=== PATIENT | male | born 1940 | race Hispanic/Latino ===

== ENCOUNTER 2018-07-18 21:46 | Emergency (ER) | payer MEDICARE, OTHER ==
[~2018-07-18] VITALS: Ht 172.7 cm; Wt 81.6 kg
== END 2018-07-18 23:40 | disposition home or self-care (01) ==
LOC: ER 21:46
DX: S01.111A Laceration without foreign body of right eyelid and periocular area, initial encounter (principal); W45.8XXA Other foreign body or object entering through skin, initial encounter; Y92.008 Other place in unspecified non-institutional (private) residence as the place of occurrence of the external cause; I10 Essential (primary) hypertension; E78.5 Hyperlipidemia, unspecified; Z86.73 Personal history of transient ischemic attack (TIA), and cerebral infarction without residual deficits

== ENCOUNTER 2021-03-14 16:26 | Inpatient (IN) | payer OTHER ==
[~2021-03-14] VITALS: Ht 170.2 cm; Wt 78.9 kg
[2021-03-14] MEDS ORDERED: MORPHINE SULFATE INJ 2 MG/ML SYR IV PRN (16:45)
[2021-03-14] MEDS ORDERED: AMLODIPINE BESYL5 MG PO (17:02)
[2021-03-14] MEDS ORDERED: FLUOXETINE HCL10 MG PO (17:02)
[2021-03-14] MEDS ORDERED: MELOXICAM7.5 MG PO (17:02)
[2021-03-14] MEDS ORDERED: ATORVASTATIN CA40 MG PO (17:02)
[2021-03-14 17:04] LABS: BASOPHILS % 0.2 % (0.0-1.0); EOSINOPHILS % 0.3 % (0.0-6.0); HEMATOCRIT 45.6 % (38.2-49.6); HEMOGLOBIN 15.6 g/dL (14.0-18.0); LYMPHOCYTES # (AUTO) 1.4 (1.0-3.2); LYMPHOCYTES % 11.2 % (18.0-39.1); MEAN CORPUSCULAR HEMOGLOBIN 30.4 pg (28-32); MEAN CORPUSCULAR HGB CONC 34.2 g/dL (31-35); MEAN CORPUSCULAR VOLUME 88.7 fL (81-99); MONOCYTES # (AUTO) 0.8 (0.2-0.8); MONOCYTES % 6.5 % (4.4-11.3); NEUTROPHILS # (AUTO) 10.3 (2.1-6.9); NEUTROPHILS % 81.4 % (38.7-80.0); PLATELET COUNT 133 x10e3/uL (140-360); RED BLOOD COUNT 5.14 x10e6/uL (4.3-5.7); RED CELL DISTRIBUTION WIDTH 13.2 % (11.7-14.4)
[2021-03-14 17:20] LABS: ALANINE AMINOTRANSFERASE 34 IU/L (0-55); ALBUMIN 4.7 g/dL (3.5-5.0); ALBUMIN/GLOBULIN RATIO 1.6 (0.8-2.0); ALKALINE PHOSPHATASE 74 IU/L (40-150); ANION GAP 17.1 mmol/L (8-16); BLOOD UREA NITROGEN 17 mg/dL (7-26); BUN/CREATININE RATIO 16 (6-25); CALCIUM 9.4 mg/dL (8.4-10.2); CARBON DIOXIDE 24 mmol/L (22-29); CHLORIDE 102 mmol/L (98-107); CREATININE, SERUM 1.08 mg/dL (0.72-1.25); EST GLOMERULAR FILTRATION RATE > 60 ML/MIN (60-); GLUCOSE 117 mg/dL (74-118); POTASSIUM 4.1 mmol/L (3.5-5.1); SODIUM 139 mmol/L (136-145)
[2021-03-14 17:26] LABS: CREATINE KINASE 178 IU/L (30-200)
[2021-03-14] MEDS: ONDANSETRON HCL INJ 2MG/ML 2ML 2 MG/ML VIAL IV PRN (17:26)
[2021-03-14] MEDS: SODIUM CHLORIDE 0.9% 1000ML 1,000 ML IV SCH (17:26)
[2021-03-14] MEDS: MORPHINE SULFATE INJ 4 MG/ML INJ 1ML IV PRN (17:26)
[2021-03-14 20:50] VITALS: BP 151/72
[2021-03-14] MEDS ORDERED: AMLODIPINE BESYLATE 5 MG TAB PO ONE (22:15)
[2021-03-14] MEDS ORDERED: CELECOXIB 100 MG CAP PO ONE (22:15)
[2021-03-14 22:50] VITALS: BP 158/83
[2021-03-15] VITALS (8 sets, daily range): BP systolic 110–151; BP diastolic 71–76
[2021-03-15] MEDS ORDERED: FINASTERIDE5 MG PO (01:01)
[2021-03-15] MEDS ORDERED: FLOMAX0.4 MG PO (01:01)
[2021-03-15 01:04] LABS: CREATINE KINASE MB 0.6 ng/mL (0-5.0)
[2021-03-15] MEDS: SODIUM CHLORIDE 0.9% 1000ML 1,000 ML IV SCH (02:25)
[2021-03-15 05:01] LABS: BASOPHILS % 0.2 % (0.0-1.0); EOSINOPHILS # (AUTO) 0.1 (0.0-0.4); EOSINOPHILS % 0.9 % (0.0-6.0); HEMATOCRIT 40.7 % (38.2-49.6); LYMPHOCYTES # (AUTO) 1.6 (1.0-3.2); LYMPHOCYTES % 19.2 % (18.0-39.1); MEAN CORPUSCULAR HEMOGLOBIN 30.4 pg (28-32); MEAN CORPUSCULAR HGB CONC 34.4 g/dL (31-35); MEAN CORPUSCULAR VOLUME 88.5 fL (81-99); MONOCYTES # (AUTO) 0.6 (0.2-0.8); MONOCYTES % 7.4 % (4.4-11.3); NEUTROPHILS # (AUTO) 6.2 (2.1-6.9); NEUTROPHILS % 72.1 % (38.7-80.0); PLATELET COUNT 113 x10e3/uL (140-360); RED CELL DISTRIBUTION WIDTH 13.1 % (11.7-14.4)
[2021-03-15 05:21] LABS: ALANINE AMINOTRANSFERASE 26 IU/L (0-55); ALBUMIN 3.8 g/dL (3.5-5.0); ALBUMIN/GLOBULIN RATIO 1.5 (0.8-2.0); ALKALINE PHOSPHATASE 59 IU/L (40-150); ANION GAP 14.3 mmol/L (8-16); BLOOD UREA NITROGEN 16 mg/dL (7-26); BUN/CREATININE RATIO 18 (6-25); CARBON DIOXIDE 23 mmol/L (22-29); CHLORIDE 107 mmol/L (98-107); EST GLOMERULAR FILTRATION RATE > 60 ML/MIN (60-); GLUCOSE 110 mg/dL (74-118); POTASSIUM 4.3 mmol/L (3.5-5.1); SODIUM 140 mmol/L (136-145)
[2021-03-15] MEDS: AMLODIPINE BESYLATE 5 MG TAB PO SCH ×2 (06:00→09:07)
[2021-03-15] MEDS ORDERED: ATORVASTATIN 40 MG TAB PO SCH (09:00)
[2021-03-15] MEDS: CELECOXIB 100 MG CAP PO SCH ×2 (09:06→16:02)
[2021-03-15] MEDS: FLUOXETINE HCL 10 MG CAP PO SCH (09:07)
[2021-03-15] MEDS: SENNA-S TABLET PO SCH ×2 (09:07→17:00)
[2021-03-15 09:27] LABS: CREATINE KINASE MB 0.6 ng/mL (0-5.0)
[2021-03-15] MEDS: MORPHINE SULFATE INJ 4 MG/ML INJ 1ML IV PRN (16:11)
[2021-03-15] MEDS: ONDANSETRON HCL INJ 2MG/ML 2ML 2 MG/ML VIAL IV PRN (16:11)
[2021-03-15] MEDS: ATORVASTATIN 40 MG TAB PO SCH (20:48)
[2021-03-16] VITALS (7 sets, daily range): BP systolic 132–162; BP diastolic 76–94
[2021-03-16] MEDS ORDERED: SODIUM CHLORIDE 0.9% 1000ML 1,000 ML IV SCH
[2021-03-16] MEDS ORDERED: CEFAZOLIN SOD 1 GM/NS 50ML 100 ML IV ONE (06:00)
[2021-03-16] MEDS: CELECOXIB 100 MG CAP PO SCH ×2 (08:00→17:50)
[2021-03-16] MEDS: FLUOXETINE HCL 10 MG CAP PO SCH (09:00)
[2021-03-16] MEDS: AMLODIPINE BESYLATE 5 MG TAB PO SCH (09:00)
[2021-03-16] MEDS: SENNA-S TABLET PO SCH ×2 (09:00→17:50)
[2021-03-16] MEDS ORDERED: CEFAZOLIN SOD 1 GM/NS 50ML 50 ML IV ONE (09:32)
[2021-03-16] MEDS ORDERED: NALOXONE HCL INJ 0.4 MG/ML AMP IV PRN (12:15)
[2021-03-16] MEDS ORDERED: ONDANSETRON HCL INJ 2MG/ML 2ML 2 MG/ML VIAL IV PRN (12:15)
[2021-03-16] MEDS ORDERED: HYDROMORPHONE 0.2MG/ML-SOD CHL 30ML PCA SYRINGE IV PRN (12:15)
[2021-03-16] MEDS ORDERED: NEOSTIGMINE 1 MG/ML 10ML VIAL ONE (12:44)
[2021-03-16] MEDS ORDERED: DEXAMETHASONE SOD PHOS INJ 4 MG/ML VIAL ONE (12:44)
[2021-03-16] MEDS ORDERED: SEVOFLURANE INHAL SOLN 250 ML PEN BTL ONE (12:44)
[2021-03-16] MEDS ORDERED: ROCURONIUM BROMIDE 10 MG/ML 5ML VIAL IV ONE (12:44)
[2021-03-16] MEDS ORDERED: ONDANSETRON HCL INJ 2MG/ML 2ML 2 MG/ML VIAL ONE (12:44)
[2021-03-16] MEDS ORDERED: LIDOCAINE HCL 2% LOCAL INJ 5 ML SDV VIAL INJ ONE (12:44)
[2021-03-16] MEDS ORDERED: PROPOFOL IV EMULSION 10 MG/ML 20 ML VIAL ONE (12:44)
[2021-03-16] MEDS ORDERED: GLYCOPYRROLATE INJ 0.2 MG/ML VIAL ONE (12:44)
[2021-03-16] MEDS ORDERED: EPHEDRINE SULFATE INJ 50 MG/ML VIAL ONE (12:44)
[2021-03-16] MEDS ORDERED: HYDROMORPHONE 0.2MG/ML-SOD CHL 30ML PCA SYRINGE IV ONE (12:57)
[2021-03-16] MEDS ORDERED: FENTANYL CITRATE/PF 100MCG/2 ML INJ ONE (13:27)
[2021-03-16] MEDS ORDERED: MORPHINE SULFATE INJ 10 MG/ML ONE (13:27)
[2021-03-16] MEDS: SODIUM CHLORIDE 0.9% 1000ML 1,000 ML IV SCH ×2 (16:12→22:15)
[2021-03-16] MEDS: CEFAZOLIN SOD 1 GM/NS 50ML 50 ML IV SCH (17:50)
[2021-03-16] MEDS: ACETAMINOPHEN 1000 MG/100 ML IV SCH (17:54)
[2021-03-16] MEDS: ATORVASTATIN 40 MG TAB PO SCH (22:56)
[2021-03-17] VITALS (9 sets, daily range): BP systolic 126–166; BP diastolic 67–90
[2021-03-17] MEDS: CEFAZOLIN SOD 1 GM/NS 50ML 50 ML IV SCH ×2 (01:34→08:35)
[2021-03-17] MEDS: ACETAMINOPHEN 1000 MG/100 ML IV SCH ×3 (05:23→12:13)
[2021-03-17 06:15] LABS: BASOPHILS % 0.2 % (0.0-1.0); EOSINOPHILS % 0.3 % (0.0-6.0); HEMATOCRIT 35.5 % (38.2-49.6); LYMPHOCYTES % 21.6 % (18.0-39.1); MEAN CORPUSCULAR HEMOGLOBIN 30.5 pg (28-32); MEAN CORPUSCULAR HGB CONC 33.8 g/dL (31-35); MEAN CORPUSCULAR VOLUME 90.3 fL (81-99); MONOCYTES # (AUTO) 0.8 (0.2-0.8); MONOCYTES % 8.6 % (4.4-11.3); NEUTROPHILS # (AUTO) 6.5 (2.1-6.9); PLATELET COUNT 125 x10e3/uL (140-360); RED BLOOD COUNT 3.93 x10e6/uL (4.3-5.7); RED CELL DISTRIBUTION WIDTH 13.1 % (11.7-14.4)
[2021-03-17 06:40] LABS: ANION GAP 13.3 mmol/L (8-16); CREATININE, SERUM 1.17 mg/dL (0.72-1.25); POTASSIUM 4.3 mmol/L (3.5-5.1)
[2021-03-17] MEDS: AMLODIPINE BESYLATE 5 MG TAB PO SCH (08:37)
[2021-03-17] MEDS: SENNA-S TABLET PO SCH ×2 (08:37→21:40)
[2021-03-17] MEDS: CELECOXIB 100 MG CAP PO SCH ×2 (08:37→16:10)
[2021-03-17] MEDS: FLUOXETINE HCL 10 MG CAP PO SCH (08:37)
[2021-03-17] MEDS: SODIUM CHLORIDE 0.9% 1000ML 1,000 ML IV SCH (08:37)
[2021-03-17] MEDS ORDERED: HYDROCODONE/APAP 7.5MG-325MG 1 EA TAB PO PRN (08:45)
[2021-03-17] MEDS ORDERED: APIXAB 2.5 MG TABLET PO SCH (09:00)
[2021-03-17] MEDS: GABAPENTIN 100 MG CAP PO SCH ×4 (10:09→21:40)
[2021-03-17] MEDS: ATORVASTATIN 40 MG TAB PO SCH (21:40)
[2021-03-17] MEDS: APIXAB 2.5 MG TABLET PO SCH (21:40)
[2021-03-18] VITALS (8 sets, daily range): BP systolic 126–150; BP diastolic 62–79
[2021-03-18 05:33] LABS: BASOPHILS % 0.4 % (0.0-1.0); EOSINOPHILS # (AUTO) 0.1 (0.0-0.4); EOSINOPHILS % 1.9 % (0.0-6.0); HEMATOCRIT 31.2 % (38.2-49.6); HEMOGLOBIN 10.6 g/dL (14.0-18.0); LYMPHOCYTES # (AUTO) 1.7 (1.0-3.2); LYMPHOCYTES % 23.5 % (18.0-39.1); MEAN CORPUSCULAR HEMOGLOBIN 30.7 pg (28-32); MEAN CORPUSCULAR VOLUME 90.4 fL (81-99); MONOCYTES # (AUTO) 0.5 (0.2-0.8); MONOCYTES % 7.5 % (4.4-11.3); NEUTROPHILS # (AUTO) 4.8 (2.1-6.9); NEUTROPHILS % 66.4 % (38.7-80.0); PLATELET COUNT 99 x10e3/uL (140-360); RED BLOOD COUNT 3.45 x10e6/uL (4.3-5.7); RED CELL DISTRIBUTION WIDTH 13.2 % (11.7-14.4)
[2021-03-18] MEDS: CELECOXIB 100 MG CAP PO SCH ×2 (08:26→16:05)
[2021-03-18] MEDS: GABAPENTIN 100 MG CAP PO SCH ×3 (08:26→21:30)
[2021-03-18] MEDS: AMLODIPINE BESYLATE 5 MG TAB PO SCH (08:26)
[2021-03-18] MEDS: APIXAB 2.5 MG TABLET PO SCH ×2 (08:26→21:30)
[2021-03-18] MEDS: FLUOXETINE HCL 10 MG CAP PO SCH (08:26)
[2021-03-18] MEDS: SENNA-S TABLET PO SCH ×2 (08:26→21:30)
[2021-03-18] MEDS: ATORVASTATIN 40 MG TAB PO SCH (21:30)
[2021-03-19] VITALS (8 sets, daily range): BP systolic 103–134; BP diastolic 63–86
[2021-03-19] MEDS: GABAPENTIN 100 MG CAP PO SCH ×3 (08:34→20:47)
[2021-03-19] MEDS: SENNA-S TABLET PO SCH ×2 (08:34→20:47)
[2021-03-19] MEDS: AMLODIPINE BESYLATE 5 MG TAB PO SCH (08:34)
[2021-03-19] MEDS: APIXAB 2.5 MG TABLET PO SCH ×2 (08:34→20:47)
[2021-03-19] MEDS: CELECOXIB 100 MG CAP PO SCH ×2 (08:34→16:27)
[2021-03-19] MEDS: FLUOXETINE HCL 10 MG CAP PO SCH (08:34)
[2021-03-19] MEDS: ATORVASTATIN 40 MG TAB PO SCH (20:47)
[2021-03-20] VITALS (8 sets, daily range): BP systolic 126–136; BP diastolic 70–84
[2021-03-20 05:00] LABS: BASOPHILS % 0.4 % (0.0-1.0); EOSINOPHILS # (AUTO) 0.1 (0.0-0.4); EOSINOPHILS % 1.2 % (0.0-6.0); HEMATOCRIT 31.6 % (38.2-49.6); HEMOGLOBIN 10.8 g/dL (14.0-18.0); LYMPHOCYTES # (AUTO) 1.6 (1.0-3.2); LYMPHOCYTES % 20.2 % (18.0-39.1); MEAN CORPUSCULAR HEMOGLOBIN 30.6 pg (28-32); MEAN CORPUSCULAR HGB CONC 34.2 g/dL (31-35); MEAN CORPUSCULAR VOLUME 89.5 fL (81-99); MONOCYTES # (AUTO) 0.7 (0.2-0.8); MONOCYTES % 9.4 % (4.4-11.3); NEUTROPHILS # (AUTO) 5.3 (2.1-6.9); NEUTROPHILS % 68.2 % (38.7-80.0); PLATELET COUNT 124 x10e3/uL (140-360); RED BLOOD COUNT 3.53 x10e6/uL (4.3-5.7); RED CELL DISTRIBUTION WIDTH 13.3 % (11.7-14.4)
[2021-03-20 05:26] LABS: ANION GAP 15.1 mmol/L (8-16); BLOOD UREA NITROGEN 23 mg/dL (7-26); BUN/CREATININE RATIO 28 (6-25); CALCIUM 8.6 mg/dL (8.4-10.2); CARBON DIOXIDE 21 mmol/L (22-29); CHLORIDE 107 mmol/L (98-107); CREATININE, SERUM 0.82 mg/dL (0.72-1.25); EST GLOMERULAR FILTRATION RATE > 60 ML/MIN (60-); GLUCOSE 106 mg/dL (74-118); POTASSIUM 4.1 mmol/L (3.5-5.1); SODIUM 139 mmol/L (136-145)
[2021-03-20] MEDS: GABAPENTIN 100 MG CAP PO SCH ×3 (09:54→20:01)
[2021-03-20] MEDS: AMLODIPINE BESYLATE 5 MG TAB PO SCH (09:54)
[2021-03-20] MEDS: CELECOXIB 100 MG CAP PO SCH ×2 (09:54→16:48)
[2021-03-20] MEDS: APIXAB 2.5 MG TABLET PO SCH ×2 (09:54→20:01)
[2021-03-20] MEDS: SENNA-S TABLET PO SCH ×2 (09:54→20:01)
[2021-03-20] MEDS: FLUOXETINE HCL 10 MG CAP PO SCH (09:55)
[2021-03-20] MEDS ORDERED: ONDANSETRON HCL 4 MG ORAL DISINTEGRATING TAB PO PRN (13:45)
[2021-03-20] MEDS: ATORVASTATIN 40 MG TAB PO SCH (20:01)
[2021-03-20] MEDS: MORPHINE SULFATE INJ 4 MG/ML INJ 1ML IV PRN (20:02)
[2021-03-21] VITALS (8 sets, daily range): BP systolic 117–137; BP diastolic 67–85
[2021-03-21] MEDS ORDERED: POTASSIUM CHLORIDE 10MEQ EA PO NR (08:15)
[2021-03-21] MEDS ORDERED: FUROSEMIDE INJ 10 MG/ML 4 ML VIAL IV ONE (08:15)
[2021-03-21] MEDS: APIXAB 2.5 MG TABLET PO SCH ×2 (09:37→21:24)
[2021-03-21] MEDS: CELECOXIB 100 MG CAP PO SCH ×2 (09:37→17:00)
[2021-03-21] MEDS: AMLODIPINE BESYLATE 5 MG TAB PO SCH (09:38)
[2021-03-21] MEDS: GABAPENTIN 100 MG CAP PO SCH ×3 (09:38→21:24)
[2021-03-21] MEDS: FLUOXETINE HCL 10 MG CAP PO SCH (09:39)
[2021-03-21] MEDS: SENNA-S TABLET PO SCH ×2 (09:39→21:24)
[2021-03-21] MEDS: METOPROLOL TARTRATE 25 MG TAB PO SCH ×2 (12:25→21:24)
[2021-03-21] MEDS: ATORVASTATIN 40 MG TAB PO SCH (21:24)
[2021-03-22] VITALS: BP 126/72
[2021-03-22 04:00] VITALS: BP 122/66
[2021-03-22 07:43] VITALS: BP 120/72
[2021-03-22 08:18] VITALS: BP 120/72
[2021-03-22] MEDS: CELECOXIB 100 MG CAP PO SCH (08:23)
[2021-03-22] MEDS: APIXAB 2.5 MG TABLET PO SCH (08:24)
[2021-03-22] MEDS: GABAPENTIN 100 MG CAP PO SCH (08:25)
[2021-03-22] MEDS: METOPROLOL TARTRATE 25 MG TAB PO SCH (08:25)
[2021-03-22] MEDS: FLUOXETINE HCL 10 MG CAP PO SCH (08:26)
[2021-03-22] MEDS: SENNA-S TABLET PO SCH (08:26)
[2021-03-22 08:43] LABS: BLOOD UREA NITROGEN 36 mg/dL (7-26); BUN/CREATININE RATIO 41 (6-25); CALCIUM 8.6 mg/dL (8.4-10.2); CARBON DIOXIDE 22 mmol/L (22-29); CHLORIDE 107 mmol/L (98-107); CREATININE, SERUM 0.87 mg/dL (0.72-1.25); EST GLOMERULAR FILTRATION RATE > 60 ML/MIN (60-); GLUCOSE 100 mg/dL (74-118); SODIUM 139 mmol/L (136-145)
== END 2021-03-22 12:49 | DRG 470 ==
LOC: ER 16:35 → ERHOLD 16:40 → MED/SURG 22:03
PROVIDERS: ADMIT Internal Medicine; ATTEND Internal Medicine
PROC: 0SRR0J9 Replacement of Right Hip Joint, Femoral Surface with Synthetic Substitute, Cemented, Open Approach (ICD-10-PCS; principal; 2021-03-16 09:44)
DX: S72.91XA Unspecified fracture of right femur, initial encounter for closed fracture (principal); N40.0 Benign prostatic hyperplasia without lower urinary tract symptoms; I10 Essential (primary) hypertension; E78.5 Hyperlipidemia, unspecified; I95.9 Hypotension, unspecified; F03.90 Unspecified dementia, unspecified severity, without behavioral disturbance, psychotic disturbance, mood disturbance, and anxiety; D64.9 Anemia, unspecified; R53.81 Other malaise; Z86.73 Personal history of transient ischemic attack (TIA), and cerebral infarction without residual deficits; Z20.822 Contact with and (suspected) exposure to COVID-19
CPT/HCPCS: 36415; 71045; 72170; 80048; 80053; 82550; 82553; 84484; 85025; 86850; 86900; 88304; 88305; 88311; 93005; 97139; 99251; 99284; C1713; C1776; J0690; J1100; J1940; J2001; J2270; J2405; J2710; J3010; J7030; U0002